=== PATIENT | female | born 1960 | race African-American/Black ===

== ENCOUNTER 2019-08-25 13:44 | Inpatient (IN) ==
[2019-08-25] MEDS ORDERED: SODIUM CHLORIDE 0.9% 1,000 ML IV STA (14:05)
[2019-08-25 14:23] LABS: Eosinophils % 0.1 % (0.00-10.9); Immature Granulocytes % 3.2 %; Immature Granulocytes Absolute 0.43 #; Lymphocytes # 0.9 10*3/uL (1.4-4.0); Lymphocytes % 6.4 % (21.3-54.2); Mean Corpuscular HGB Conc 29.1 GM/DL (32-36); Mean Corpuscular Volume 92.9 FL (87-102); Mean Platelet Volume 9.5 FL (9.6-12.0); NRBC # 0.03 10*3/uL; Neutrophils % 80.3 % (38.7-73.9); Platelet Count 423 T/CUMM (130-400); Red Blood Count 1.26 MC/CUMM (3.8-5.5); White Blood Count 13.4 T/CUMM (4-12)
[2019-08-25 14:32] LABS: Hematocrit 11.7 VOL% (35.7-47.0); Hemoglobin 3.4 GM/DL (12.0-16.0)
[2019-08-25] MEDS ORDERED: SODIUM CHLORIDE 0.9% 1,000 ML IV PRN (14:39)
[2019-08-25 14:40] LABS: Alanine Aminotransferase < 6 U/L (13-56); Albumin 2.3 G/DL (3.4-5.0); Alkaline Phosphatase 83 U/L (45-117); Aspartate Amino Transferase 9 U/L (0-37); Blood Urea Nitrogen 141 MG/DL (7-18); Estimated Glom Filtration Rate 4 ML/MIN; Glucose 133 MG/DL (74-106); Osmolality,Calculated 317.1 MOS/KG (273-304); Total Protein 6.9 G/DL (6.4-8.3); Troponin I < 0.015 NG/ML (0.00-0.045)
[2019-08-25 14:43] LABS: Calcium 5.6 MG/DL (8.5-10.1)
[2019-08-25 14:49] LABS: Apearance,Urine CLOUDY (Clear); Bilirubin,Urine Negative (Negative); Blood, Urine Large mg/dL (Negative); Glucose,Urine (UA) Negative (Negative); Ketones,Urine Negative (Negative); Nitrite,Urine Negative (Negative); Protein,Urine 100 MG/DL; RBC,Urine 243 /HPF (0-4); Urine Color Yellow (Yellow); Urine Specific Gravity 1.011 (1.001-1.035); Urine Urobilinogen < 2.0 EU/DL (0.2-1.0); WBC,Urine 1991 /HPF (0-6)
[2019-08-25] MEDS ORDERED: cefTRIAXone 1,000 MG in SODIUM CHLORIDE 0.9% 100 ML IV STA (14:54)
[2019-08-25] MEDS ORDERED: CALCIUM GLUCONATE 2,000 MG in SODIUM CHLORIDE 0.9% 100 ML IV ONE (14:54)
[2019-08-25] MEDS ORDERED: CALCIUM GLUCONATE 1,000 MG/10 ML VIAL IV ONE (15:32)
[2019-08-25] MEDS ORDERED: ZALEPLON 5 MG CAPSULE PO PRN (15:43)
[2019-08-25] MEDS ORDERED: DOCUSATE SODIUM 100 MG CAPSULE PO PRN (15:43)
[2019-08-25] MEDS ORDERED: diphenhydrAMINE CAP 25 MG CAPSULE PO PRN (15:43)
[2019-08-25] MEDS ORDERED: ACETAMINOPHEN 325 MG TABLET PO PRN (15:43)
[2019-08-25] MEDS ORDERED: ALBUTEROL 2.5 MG/3 ML NEB RESP TX PRN (15:43)
[2019-08-25] MEDS ORDERED: FAMOTIDINE 20 MG/2 ML VIAL IV SCH (16:00)
[2019-08-25] MEDS ORDERED: PANTOPRAZOLE 40 MG VIAL IV ONE (16:52)
[2019-08-25 17:04] LABS: Basophils % 0.1 % (0.0-0.8); Immature Granulocytes % 3.3 %; Immature Granulocytes Absolute 0.45 #; Lymphocytes # 0.9 10*3/uL (1.4-4.0); Lymphocytes % 6.8 % (21.3-54.2); Mean Corpuscular HGB Conc 29.3 GM/DL (32-36); Mean Corpuscular Volume 95.3 FL (87-102); Mean Platelet Volume 9.3 FL (9.6-12.0); Monocytes % 9.9 % (1.7-12.7); NRBC # 0.04 10*3/uL; Neutrophils % 79.9 % (38.7-73.9); Platelet Count 390 T/CUMM (130-400); Red Blood Count 1.29 MC/CUMM (3.8-5.5); Red Cell Distribution Width 19.2 % (9.3-17.3); White Blood Count 13.7 T/CUMM (4-12)
[2019-08-25 17:07] LABS: Hemoglobin 3.6 GM/DL (12.0-16.0)
[2019-08-25 17:08] LABS: Hematocrit 12.3 VOL% (35.7-47.0)
[2019-08-25] MEDS: SUCRALFATE 1 GM/10 ML UDCUP PO SCH ×2 (17:48→21:22)
[2019-08-25] MEDS: SODIUM BICARB INJ 50 MEQ in SODIUM CHLORIDE 0.45% 1,000 ML IV SCH (17:48)
[2019-08-25] MEDS ORDERED: PANTOPRAZOLE 40 MG VIAL IV STA (17:52)
[2019-08-25] MEDS: PANTOPRAZOLE 40 MG VIAL IV SCH (21:22)
[2019-08-26] MEDS: SODIUM BICARB INJ 50 MEQ in SODIUM CHLORIDE 0.45% 1,000 ML IV SCH ×3 (02:02→20:26)
[2019-08-26 03:06] LABS: Basophils % 0.1 % (0.0-0.8); Hematocrit 20.3 VOL% (35.7-47.0); Immature Granulocytes % 2.2 %; Immature Granulocytes Absolute 0.31 #; Lymphocytes # 0.7 10*3/uL (1.4-4.0); Lymphocytes % 5.2 % (21.3-54.2); Mean Corpuscular HGB Conc 30.5 GM/DL (32-36); Mean Platelet Volume 9.7 FL (9.6-12.0); Monocytes % 10.9 % (1.7-12.7); NRBC # 0.06 10*3/uL; Neutrophils % 81.6 % (38.7-73.9); Platelet Count 367 T/CUMM (130-400); Red Blood Count 2.23 MC/CUMM (3.8-5.5); White Blood Count 13.9 T/CUMM (4-12)
[2019-08-26 03:10] LABS: Hemoglobin 6.2 GM/DL (12.0-16.0)
[2019-08-26 03:35] LABS: Osmolality,Calculated 318.7 MOS/KG (273-304)
[2019-08-26 04:35] LABS: Calcium 5.5 MG/DL (8.5-10.1)
[2019-08-26] MEDS ORDERED: CALCIUM GLUCONATE 2,000 MG in SODIUM CHLORIDE 0.9% 100 ML IV ONE ×3 (06:00→17:20)
[2019-08-26] MEDS ORDERED: SODIUM CHLORIDE 0.9% 1,000 ML IV PRN (07:48)
[2019-08-26] MEDS: SUCRALFATE 1 GM/10 ML UDCUP PO SCH ×4 (08:10→20:25)
[2019-08-26] MEDS: PANTOPRAZOLE 40 MG VIAL IV SCH ×2 (08:10→20:25)
[2019-08-26] MEDS: CALCIUM CARBONATE CHEW 500 MG TABLET PO SCH ×3 (11:43→20:26)
[2019-08-26] MEDS: cefTRIAXone 1,000 MG in SYRINGE 1 EACH IV SCH (15:57)
[2019-08-26 16:59] LABS: Hematocrit 25.3 VOL% (35.7-47.0); Hemoglobin 8.1 GM/DL (12.0-16.0)
[2019-08-26] MEDS ORDERED: MAGNESIUM SULF RIDER 2 GM in PREMIX 1 EACH IV PRN (17:25)
[2019-08-26] MEDS ORDERED: MAGNESIUM SULF RIDER 4 GM in PREMIX 1 EACH IV PRN (17:25)
[2019-08-26 22:40] LABS: Calcium 6.4 MG/DL (8.5-10.1)
[2019-08-27] MEDS: SODIUM BICARB INJ 50 MEQ in SODIUM CHLORIDE 0.45% 1,000 ML IV SCH ×2 (05:21→16:27)
[2019-08-27 05:39] LABS: Basophils % 0.2 % (0.0-0.8); Eosinophils % 0.2 % (0.00-10.9); Hematocrit 27.2 VOL% (35.7-47.0); Hemoglobin 8.7 GM/DL (12.0-16.0); Immature Granulocytes Absolute 0.49 #; Lymphocytes % 8.1 % (21.3-54.2); Mean Platelet Volume 9.9 FL (9.6-12.0); Monocytes % 11.4 % (1.7-12.7); NRBC # 0.03 10*3/uL; Neutrophils % 76.1 % (38.7-73.9); Platelet Count 316 T/CUMM (130-400); Red Cell Distribution Width 18.2 % (9.3-17.3); White Blood Count 12.1 T/CUMM (4-12)
[2019-08-27 06:06] LABS: Calcium 6.2 MG/DL (8.5-10.1)
[2019-08-27] MEDS: CALCIUM CARBONATE CHEW 500 MG TABLET PO SCH ×4 (06:42→21:38)
[2019-08-27] MEDS: SUCRALFATE 1 GM/10 ML UDCUP PO SCH ×4 (06:42→21:38)
[2019-08-27] MEDS: PANTOPRAZOLE 40 MG VIAL IV SCH ×2 (08:04→21:38)
[2019-08-27] MEDS ORDERED: LEVOFLOXACIN INJ 750 MG in PREMIX 1 EACH IV ONE (08:57)
[2019-08-27] MEDS: ZINC OXIDE PASTE 113 GM TUBE TOP SCH ×2 (16:24→22:00)
[2019-08-27] MEDS: cefTRIAXone 1,000 MG in SYRINGE 1 EACH IV SCH (16:24)
[2019-08-28] MEDS: SODIUM BICARB INJ 50 MEQ in SODIUM CHLORIDE 0.45% 1,000 ML IV SCH ×2 (02:40→09:52)
[2019-08-28 05:35] LABS: Calcium 6.1 MG/DL (8.5-10.1); Osmolality,Calculated 301.2 MOS/KG (273-304)
[2019-08-28] MEDS: CALCIUM CARBONATE CHEW 500 MG TABLET PO SCH ×4 (06:37→21:46)
[2019-08-28] MEDS: SUCRALFATE 1 GM/10 ML UDCUP PO SCH ×4 (06:37→21:46)
[2019-08-28] MEDS: PANTOPRAZOLE 40 MG VIAL IV SCH (09:52)
[2019-08-28] MEDS: ZINC OXIDE PASTE 113 GM TUBE TOP SCH ×2 (10:09→21:47)
[2019-08-28] MEDS: PANTOPRAZOLE 40 MG TABLET PO SCH ×2 (10:09→21:46)
[2019-08-28] MEDS ORDERED: CALCIUM GLUCONATE 2,000 MG in SODIUM CHLORIDE 0.9% 100 ML IV ONE (10:27)
[2019-08-28] MEDS: ALBUTEROL/IPRATROPIUM 3 ML NEB RESP TX SCH ×2 (12:30→19:42)
[2019-08-28] MEDS: SODIUM BICARB INJ 150 MEQ in STERILE WATER INJ 850 ML IV SCH ×2 (12:33→22:35)
[2019-08-28] MEDS: cefTRIAXone 1,000 MG in SYRINGE 1 EACH IV SCH (17:31)
[2019-08-29] MEDS: ALBUTEROL/IPRATROPIUM 3 ML NEB RESP TX SCH ×3 (00:31→13:34)
[2019-08-29 05:09] LABS: Basophils % 0.2 % (0.0-0.8); Hematocrit 25.7 VOL% (35.7-47.0); Hemoglobin 8.5 GM/DL (12.0-16.0); Immature Granulocytes % 1.8 %; Immature Granulocytes Absolute 0.32 #; Lymphocytes # 0.9 10*3/uL (1.4-4.0); Lymphocytes % 4.7 % (21.3-54.2); Mean Corpuscular HGB Conc 33.1 GM/DL (32-36); Mean Corpuscular Volume 81.6 FL (87-102); Mean Platelet Volume 9.7 FL (9.6-12.0); Monocytes % 10.2 % (1.7-12.7); Neutrophils % 83.1 % (38.7-73.9); Platelet Count 302 T/CUMM (130-400); Red Blood Count 3.15 MC/CUMM (3.8-5.5); Red Cell Distribution Width 18.4 % (9.3-17.3); White Blood Count 18.3 T/CUMM (4-12)
[2019-08-29 05:43] LABS: Calcium 6.3 MG/DL (8.5-10.1); Osmolality,Calculated 298.2 MOS/KG (273-304)
[2019-08-29 05:46] LABS: Burr Cells Slight; Hypochromasia 1+; Lymphocytes 2 % (20-55); Ovalocytes Slight; Platelet Estimate Adequate; Segmented Neutrophils 89 % (50-85); Total Cells Counted 100
[2019-08-29] MEDS: ZINC OXIDE PASTE 113 GM TUBE TOP SCH (09:46)
[2019-08-29] MEDS: CALCIUM CARBONATE CHEW 500 MG TABLET PO SCH ×2 (09:47→12:53)
[2019-08-29] MEDS: PANTOPRAZOLE 40 MG TABLET PO SCH (09:47)
[2019-08-29] MEDS: SUCRALFATE 1 GM/10 ML UDCUP PO SCH ×2 (09:47→12:53)
[2019-08-29] MEDS: SODIUM BICARB INJ 150 MEQ in STERILE WATER INJ 850 ML IV SCH (09:47)
[2019-08-29 13:56] VITALS: BP 111/63
== END 2019-08-29 13:50 | disposition home health service (06) | DRG 254 ==
LOC: EDUNIT# → EDBD → N.ED 13:44 → SUATTDRO 15:43 → N.EDINP 15:43 → N.CC 17:51 → N.5E 08-27 19:09
PROVIDERS: ADMIT Family Medicine; ATTEND Internal Medicine

== ENCOUNTER 2019-09-05 17:19 | Inpatient (IN) ==
[2019-09-05] MEDS ORDERED: SODIUM CHLORIDE 0.9% 1,000 ML IV STA ×2 (18:10→21:32)
[2019-09-05 19:20] LABS: Apearance,Urine CLOUDY (Clear); Bilirubin,Urine Negative (Negative); Blood, Urine Moderate mg/dL (Negative); Glucose,Urine (UA) 50 mg/dL (Negative); Ketones,Urine 5 mg/dL (Negative); Nitrite,Urine Negative (Negative); Protein,Urine 100 MG/DL; RBC,Urine 17 /HPF (0-4); Urine Color Yellow (Yellow); Urine Urobilinogen < 2.0 EU/DL (0.2-1.0); WBC,Urine 1996 /HPF (0-6)
[2019-09-05 19:32] LABS: Basophils % 0.1 % (0.0-0.8); Hematocrit 24.5 VOL% (35.7-47.0); Hemoglobin 7.8 GM/DL (12.0-16.0); Immature Granulocytes % 1.8 %; Immature Granulocytes Absolute 0.41 #; Lymphocytes # 0.8 10*3/uL (1.4-4.0); Lymphocytes % 3.3 % (21.3-54.2); Mean Corpuscular HGB Conc 31.8 GM/DL (32-36); Mean Corpuscular Volume 84.8 FL (87-102); Mean Platelet Volume 10.8 FL (9.6-12.0); Monocytes % 6.5 % (1.7-12.7); Neutrophils % 88.3 % (38.7-73.9); Platelet Count 322 T/CUMM (130-400); Red Blood Count 2.89 MC/CUMM (3.8-5.5); Red Cell Distribution Width 18.8 % (9.3-17.3); White Blood Count 22.8 T/CUMM (4-12)
[2019-09-05 19:40] LABS: INR 1.2; PT Patient Result 12.6 SECS (9.6-12.2); Partial Thromboplastin Time 39.7 SECS (20.8-36.0)
[2019-09-05 20:00] LABS: Elliptocytes Few; Hypochromasia 1+; Lymphocytes 4 % (20-55); Segmented Neutrophils 91 % (50-85); Target Cells Few; Total Cells Counted 100
[2019-09-05 20:01] LABS: Burr Cells Few; Platelet Estimate Adequate
[2019-09-05] MEDS ORDERED: LEVOFLOXACIN INJ 750 MG in PREMIX 1 EACH IV STA (20:08)
[2019-09-05 20:13] LABS: Alanine Aminotransferase < 6 U/L (13-56); Albumin 1.3 G/DL (3.4-5.0); Alkaline Phosphatase 203 U/L (45-117); Aspartate Amino Transferase 27 U/L (0-37); Blood Urea Nitrogen 129 MG/DL (7-18); Calcium 6.8 MG/DL (8.5-10.1); Estimated Glom Filtration Rate 5 ML/MIN; Glucose 74 MG/DL (74-106); Osmolality,Calculated 304.5 MOS/KG (273-304); Total Protein 6.2 G/DL (6.4-8.3); Troponin I < 0.015 NG/ML (0.00-0.045)
[2019-09-05] MEDS ORDERED: SODIUM CHLORIDE 0.9% 1,000 ML IV PRN (22:20)
[2019-09-05] MEDS ORDERED: ONDANSETRON 4 MG/2 ML VIAL IV PRN (22:20)
[2019-09-05] MEDS ORDERED: DOCUSATE SODIUM 100 MG CAPSULE PO PRN (22:20)
[2019-09-05] MEDS: SODIUM CHLORIDE 0.9% 1,000 ML IV SCH (22:56)
[2019-09-05] MEDS: SODIUM BICARBONATE 650 MG TABLET PO SCH (23:30)
[2019-09-05] MEDS: ACETAMINOPHEN 325 MG TABLET PO PRN (23:31)
[2019-09-05] MEDS: PANTOPRAZOLE 40 MG TABLET PO SCH (23:31)
[2019-09-06] MEDS ORDERED: MAGNESIUM SULF RIDER 4 GM in PREMIX 1 EACH IV PRN (03:32)
[2019-09-06] MEDS ORDERED: MAGNESIUM SULF RIDER 2 GM in PREMIX 1 EACH IV PRN (03:32)
[2019-09-06 07:14] LABS: Basophils % 0.1 % (0.0-0.8); Hematocrit 25.7 VOL% (35.7-47.0); Hemoglobin 8.2 GM/DL (12.0-16.0); Immature Granulocytes % 1.9 %; Lymphocytes # 0.6 10*3/uL (1.4-4.0); Mean Corpuscular HGB Conc 31.9 GM/DL (32-36); Mean Corpuscular Volume 85.1 FL (87-102); Mean Platelet Volume 10.8 FL (9.6-12.0); Monocytes % 7.8 % (1.7-12.7); Neutrophils % 86.2 % (38.7-73.9); Platelet Count 266 T/CUMM (130-400); Red Blood Count 3.02 MC/CUMM (3.8-5.5); Red Cell Distribution Width 18.2 % (9.3-17.3); White Blood Count 15.8 T/CUMM (4-12)
[2019-09-06] MEDS: SODIUM CHLORIDE 0.9% 1,000 ML IV SCH ×4 (07:30→17:48)
[2019-09-06 07:37] LABS: Hypochromasia 1+; Lymphocytes 6 % (20-55); Ovalocytes Slight; Platelet Estimate Adequate; Segmented Neutrophils 91 % (50-85); Total Cells Counted 100
[2019-09-06 07:47] LABS: Calcium 6.5 MG/DL (8.5-10.1); Osmolality,Calculated 307.1 MOS/KG (273-304)
[2019-09-06] MEDS ORDERED: predniSONE 10 MG TABLET PO SCH (08:00)
[2019-09-06] MEDS: CALCIUM CARBONATE CHEW 500 MG TABLET PO SCH ×4 (08:53→21:33)
[2019-09-06] MEDS: PANTOPRAZOLE 40 MG TABLET PO SCH ×2 (08:53→21:33)
[2019-09-06] MEDS: FERROUS SULFATE 325 MG TABLET PO SCH ×2 (08:53→21:33)
[2019-09-06] MEDS: SODIUM BICARBONATE 650 MG TABLET PO SCH ×2 (09:35→21:33)
[2019-09-06] MEDS: HYDROCORTISONE 100 MG VIAL IV SCH ×2 (15:39→21:34)
[2019-09-06] MEDS ORDERED: CALCIUM GLUCONATE 2,000 MG in SODIUM CHLORIDE 0.9% 100 ML IV PRN (20:43)
[2019-09-06 22:33] LABS: Hepatitis B Core IgM Quant 0.05 Index; Hepatitis B Surface Ag Quant < 0.10 Index; Hepatitis B Surface Ag Result Negative (Negative); Hepatitis C Virus Ab Quant 0.14 Index; Hepatitis C Virus Ab Result Negative (Negative)
[2019-09-07] MEDS: HYDROCORTISONE 100 MG VIAL IV SCH ×4 (02:47→21:17)
[2019-09-07] MEDS: SODIUM CHLORIDE 0.9% 1,000 ML IV SCH ×4 (02:47→17:01)
[2019-09-07 05:01] LABS: Basophils % 0.1 % (0.0-0.8); Hemoglobin 8.6 GM/DL (12.0-16.0); Immature Granulocytes % 1.5 %; Immature Granulocytes Absolute 0.21 #; Lymphocytes # 0.5 10*3/uL (1.4-4.0); Lymphocytes % 3.2 % (21.3-54.2); Mean Corpuscular HGB Conc 31.9 GM/DL (32-36); Mean Corpuscular Volume 85.7 FL (87-102); Mean Platelet Volume 11.2 FL (9.6-12.0); Monocytes % 2.4 % (1.7-12.7); Neutrophils % 92.8 % (38.7-73.9); Platelet Count 303 T/CUMM (130-400); Red Blood Count 3.15 MC/CUMM (3.8-5.5); Red Cell Distribution Width 18.5 % (9.3-17.3); White Blood Count 14.5 T/CUMM (4-12)
[2019-09-07 05:20] LABS: Burr Cells Slight; Hypochromasia 1+; Lymphocytes 4 % (20-55); Ovalocytes Slight; Platelet Estimate Adequate; Segmented Neutrophils 94 % (50-85); Total Cells Counted 100
[2019-09-07 05:43] LABS: Calcium 6.8 MG/DL (8.5-10.1); Osmolality,Calculated 314.8 MOS/KG (273-304)
[2019-09-07] MEDS: PANTOPRAZOLE 40 MG TABLET PO SCH ×2 (09:07→21:17)
[2019-09-07] MEDS: SODIUM BICARBONATE 650 MG TABLET PO SCH ×2 (09:07→21:17)
[2019-09-07] MEDS: CALCIUM CARBONATE CHEW 500 MG TABLET PO SCH ×4 (09:07→21:17)
[2019-09-07] MEDS: FERROUS SULFATE 325 MG TABLET PO SCH ×2 (09:07→21:17)
[2019-09-07] MEDS ORDERED: ceFAZolin 1,000 MG in SYRINGE 1 EACH IV ONE (10:30)
[2019-09-07] MEDS ORDERED: LIDOCAINE 1%/EPI INJ 20 ML VIAL ONE (11:03)
[2019-09-07] MEDS ORDERED: TISSUE ADHESIVE 1 EACH APPLICATOR TOP ONE (11:03)
[2019-09-07] MEDS ORDERED: HEPARIN 5,000 UNIT/1 ML VIAL ONE (11:03)
[2019-09-07] MEDS ORDERED: BUPIVACAINE 0.5% 50 ML VIAL ONE (11:03)
[2019-09-07] MEDS ORDERED: SODIUM CHLORIDE 0.9% 250 ML IV SCH (12:30)
[2019-09-07] MEDS ORDERED: LIDOCAINE 2% 5 ML VIAL ONE (14:20)
[2019-09-07] MEDS ORDERED: propofoL 200 MG/20 ML VIAL IV ONE (14:20)
[2019-09-07] MEDS ORDERED: fentaNYL 100 MCG/2 ML VIAL ONE (14:21)
[2019-09-07] MEDS ORDERED: SODIUM CHLORIDE 0.9% 100 ML IV ONE (14:21)
[2019-09-07] MEDS ORDERED: PHENYLEPHRINE 1 MG/10 ML SYRINGE IV ONE (14:21)
[2019-09-07] MEDS ORDERED: ETOMIDATE 40 MG/20 ML VIAL IV ONE (14:21)
[2019-09-07] MEDS ORDERED: HEPARIN 10,000 UNIT/10 ML VIAL IV SCH (16:00)
[2019-09-07] MEDS: LEVOFLOXACIN INJ 500 MG in PREMIX 1 EACH IV SCH (21:16)
[2019-09-08] MEDS: HYDROCORTISONE 100 MG VIAL IV SCH ×4 (04:35→23:06)
[2019-09-08 06:45] LABS: Basophils % 0.1 % (0.0-0.8); Hematocrit 26.3 VOL% (35.7-47.0); Hemoglobin 8.1 GM/DL (12.0-16.0); Immature Granulocytes % 1.1 %; Immature Granulocytes Absolute 0.15 #; Lymphocytes # 0.5 10*3/uL (1.4-4.0); Mean Corpuscular HGB Conc 30.8 GM/DL (32-36); Mean Corpuscular Volume 85.4 FL (87-102); Monocytes % 4.7 % (1.7-12.7); Neutrophils % 90.1 % (38.7-73.9); Platelet Count 273 T/CUMM (130-400); Red Blood Count 3.08 MC/CUMM (3.8-5.5); Red Cell Distribution Width 18.8 % (9.3-17.3); White Blood Count 13.2 T/CUMM (4-12)
[2019-09-08] MEDS: SODIUM CHLORIDE 0.9% 1,000 ML IV SCH (06:48)
[2019-09-08 07:06] LABS: Albumin 1.2 G/DL (3.4-5.0); Calcium 6.6 MG/DL (8.5-10.1); Osmolality,Calculated 293.2 MOS/KG (273-304)
[2019-09-08] MEDS: SODIUM BICARBONATE 650 MG TABLET PO SCH ×2 (08:04→21:16)
[2019-09-08] MEDS: FERROUS SULFATE 325 MG TABLET PO SCH ×2 (08:05→21:16)
[2019-09-08] MEDS: CALCIUM CARBONATE CHEW 500 MG TABLET PO SCH ×4 (08:05→21:16)
[2019-09-08] MEDS: PANTOPRAZOLE 40 MG TABLET PO SCH ×2 (08:05→21:16)
[2019-09-08 08:47] LABS: Lymphocytes 4 % (20-55); Segmented Neutrophils 93 % (50-85); Total Cells Counted 100
[2019-09-08 08:50] LABS: Burr Cells Few; Hypochromasia 2+; Platelet Estimate Normal; Polychromasia Slight; Target Cells Few
[2019-09-08] MEDS: oxyCODONE/ACETAMINOPHEN 5-325 MG TABLET PO SCH ×3 (13:00→21:16)
[2019-09-08 17:37] LABS: Cholesterol Crystals None Seen /LPF
[2019-09-08 18:15] LABS: Lymphocytes,Synovial Fluid 5 %; Neutrophils,Synovial Fluid 90 %
[2019-09-09 05:50] LABS: Basophils % 0.1 % (0.0-0.8); Hematocrit 26.2 VOL% (35.7-47.0); Hemoglobin 8.3 GM/DL (12.0-16.0); Immature Granulocytes % 2.4 %; Immature Granulocytes Absolute 0.27 #; Lymphocytes # 0.4 10*3/uL (1.4-4.0); Lymphocytes % 3.8 % (21.3-54.2); Mean Corpuscular HGB Conc 31.7 GM/DL (32-36); Mean Corpuscular Volume 85.3 FL (87-102); Mean Platelet Volume 11.7 FL (9.6-12.0); Monocytes % 6.6 % (1.7-12.7); Neutrophils % 87.1 % (38.7-73.9); Platelet Count 264 T/CUMM (130-400); Red Blood Count 3.07 MC/CUMM (3.8-5.5); Red Cell Distribution Width 18.6 % (9.3-17.3); White Blood Count 11.3 T/CUMM (4-12)
[2019-09-09 06:27] LABS: Albumin 1.3 G/DL (3.4-5.0); Calcium 7.1 MG/DL (8.5-10.1); Osmolality,Calculated 284.2 MOS/KG (273-304)
[2019-09-09] MEDS: HYDROCORTISONE 100 MG VIAL IV SCH ×3 (06:27→23:07)
[2019-09-09 07:05] LABS: Lymphocytes 2 % (20-55); Segmented Neutrophils 96 % (50-85); Total Cells Counted 100
[2019-09-09 07:06] LABS: Anisocytosis 1+; Hypochromasia 2+; Microcytosis 1+; Polychromasia Slight; Target Cells Few
[2019-09-09 07:08] LABS: Platelet Estimate Normal
[2019-09-09] MEDS: SODIUM BICARBONATE 650 MG TABLET PO SCH ×2 (08:04→20:26)
[2019-09-09] MEDS: FERROUS SULFATE 325 MG TABLET PO SCH ×2 (08:04→20:26)
[2019-09-09] MEDS: CALCIUM CARBONATE CHEW 500 MG TABLET PO SCH ×4 (08:04→20:26)
[2019-09-09] MEDS: oxyCODONE/ACETAMINOPHEN 5-325 MG TABLET PO SCH ×3 (08:04→21:27)
[2019-09-09] MEDS: PANTOPRAZOLE 40 MG TABLET PO SCH ×2 (08:04→20:26)
[2019-09-09] MEDS: FEBUXOSTAT 80 MG TABLET PO SCH (12:01)
[2019-09-09] MEDS: HEPARIN 5,000 UNIT/1 ML VIAL SUBCUT SCH ×2 (15:58→23:09)
[2019-09-09] MEDS: LEVOFLOXACIN INJ 500 MG in PREMIX 1 EACH IV SCH (20:21)
[2019-09-10 05:16] LABS: Basophils % 0.1 % (0.0-0.8); Hematocrit 26.2 VOL% (35.7-47.0); Hemoglobin 8.2 GM/DL (12.0-16.0); Immature Granulocytes % 5.6 %; Immature Granulocytes Absolute 0.61 #; Lymphocytes # 0.5 10*3/uL (1.4-4.0); Lymphocytes % 4.2 % (21.3-54.2); Mean Corpuscular HGB Conc 31.3 GM/DL (32-36); Mean Corpuscular Volume 85.6 FL (87-102); Mean Platelet Volume 11.1 FL (9.6-12.0); Monocytes % 7.4 % (1.7-12.7); Neutrophils % 82.7 % (38.7-73.9); Platelet Count 247 T/CUMM (130-400); Red Blood Count 3.06 MC/CUMM (3.8-5.5); Red Cell Distribution Width 18.6 % (9.3-17.3); White Blood Count 10.9 T/CUMM (4-12)
[2019-09-10 05:43] LABS: Hypochromasia 1+; Lymphocytes 6 % (20-55); Microcytosis 1+; Platelet Estimate Adequate; Segmented Neutrophils 89 % (50-85); Total Cells Counted 100
[2019-09-10 05:56] LABS: Calcium 7.1 MG/DL (8.5-10.1); Osmolality,Calculated 281.5 MOS/KG (273-304)
[2019-09-10] MEDS: HEPARIN 5,000 UNIT/1 ML VIAL SUBCUT SCH ×3 (06:37→23:50)
[2019-09-10] MEDS: HYDROCORTISONE 100 MG VIAL IV SCH ×2 (06:56→16:50)
[2019-09-10] MEDS: CALCIUM CARBONATE CHEW 500 MG TABLET PO SCH ×4 (06:57→21:17)
[2019-09-10] MEDS: SODIUM BICARBONATE 650 MG TABLET PO SCH ×2 (09:07→21:17)
[2019-09-10] MEDS: PANTOPRAZOLE 40 MG TABLET PO SCH ×2 (09:07→21:17)
[2019-09-10] MEDS: oxyCODONE/ACETAMINOPHEN 5-325 MG TABLET PO SCH ×3 (09:07→21:16)
[2019-09-10] MEDS: FERROUS SULFATE 325 MG TABLET PO SCH ×2 (09:08→21:16)
[2019-09-10] MEDS: FEBUXOSTAT 80 MG TABLET PO SCH (09:08)
[2019-09-10] MEDS: ACETAMINOPHEN 325 MG TABLET PO PRN (13:50)
[2019-09-10] MEDS ORDERED: TUBERCULIN SKIN TEST 0.1 ML SYRINGE INTRADERM ONE (15:00)
[2019-09-11] MEDS: HYDROCORTISONE 100 MG VIAL IV SCH ×2 (01:01→08:25)
[2019-09-11 05:37] LABS: Basophils % 0.1 % (0.0-0.8); Hematocrit 25.5 VOL% (35.7-47.0); Hemoglobin 8.1 GM/DL (12.0-16.0); Immature Granulocytes % 7.9 %; Immature Granulocytes Absolute 1.01 #; Lymphocytes # 0.6 10*3/uL (1.4-4.0); Mean Corpuscular HGB Conc 31.8 GM/DL (32-36); Mean Corpuscular Volume 85.6 FL (87-102); Mean Platelet Volume 10.6 FL (9.6-12.0); Monocytes % 8.2 % (1.7-12.7); Neutrophils % 78.8 % (38.7-73.9); Platelet Count 217 T/CUMM (130-400); Red Blood Count 2.98 MC/CUMM (3.8-5.5); Red Cell Distribution Width 18.1 % (9.3-17.3); White Blood Count 12.7 T/CUMM (4-12)
[2019-09-11 06:05] LABS: Anisocytosis 1+; Band Neutrophils 2 % (0-10); Hypochromasia 1+; Lymphocytes 3 % (20-55); Metamyelocytes 1 %; Microcytosis 1+; Segmented Neutrophils 87 % (50-85); Target Cells Slight; Total Cells Counted 100
[2019-09-11 06:06] LABS: Platelet Estimate Normal
[2019-09-11] MEDS: HEPARIN 5,000 UNIT/1 ML VIAL SUBCUT SCH ×2 (07:24→15:46)
[2019-09-11] MEDS: FEBUXOSTAT 80 MG TABLET PO SCH (08:22)
[2019-09-11] MEDS: CALCIUM CARBONATE CHEW 500 MG TABLET PO SCH ×4 (08:22→21:48)
[2019-09-11] MEDS: SODIUM BICARBONATE 650 MG TABLET PO SCH ×2 (08:22→21:49)
[2019-09-11] MEDS: oxyCODONE/ACETAMINOPHEN 5-325 MG TABLET PO SCH ×3 (08:23→21:49)
[2019-09-11] MEDS: PANTOPRAZOLE 40 MG TABLET PO SCH ×2 (08:23→21:49)
[2019-09-11] MEDS: FERROUS SULFATE 325 MG TABLET PO SCH ×2 (08:23→21:49)
[2019-09-11 14:48] LABS: Cyclic Citrull Peptide Interp Negative
[2019-09-12] MEDS: HEPARIN 5,000 UNIT/1 ML VIAL SUBCUT SCH ×3 (00:37→16:23)
[2019-09-12 05:29] LABS: Rheumatoid Factor < 15 IU/ML (<15)
[2019-09-12] MEDS: SODIUM BICARBONATE 650 MG TABLET PO SCH ×2 (10:06→20:08)
[2019-09-12] MEDS: CALCIUM CARBONATE CHEW 500 MG TABLET PO SCH ×4 (10:06→20:08)
[2019-09-12] MEDS: FERROUS SULFATE 325 MG TABLET PO SCH ×2 (10:07→20:08)
[2019-09-12] MEDS: PANTOPRAZOLE 40 MG TABLET PO SCH ×2 (10:07→20:08)
[2019-09-12] MEDS: FEBUXOSTAT 80 MG TABLET PO SCH (10:07)
[2019-09-12] MEDS: ACETAMINOPHEN 325 MG TABLET PO PRN ×2 (10:09→16:23)
[2019-09-12] MEDS: oxyCODONE/ACETAMINOPHEN 5-325 MG TABLET PO SCH ×3 (10:09→21:02)
[2019-09-12] MEDS ORDERED: predniSONE 20 MG TABLET PO ONE (12:00)
[2019-09-13] MEDS: HEPARIN 5,000 UNIT/1 ML VIAL SUBCUT SCH ×3 (00:59→16:21)
[2019-09-13] MEDS: FEBUXOSTAT 80 MG TABLET PO SCH (08:39)
[2019-09-13] MEDS: predniSONE 20 MG TABLET PO SCH (08:40)
[2019-09-13] MEDS: FERROUS SULFATE 325 MG TABLET PO SCH ×2 (08:40→21:36)
[2019-09-13] MEDS: SODIUM BICARBONATE 650 MG TABLET PO SCH ×2 (08:40→21:36)
[2019-09-13] MEDS: PANTOPRAZOLE 40 MG TABLET PO SCH ×2 (08:40→21:36)
[2019-09-13] MEDS: CALCIUM CARBONATE CHEW 500 MG TABLET PO SCH ×4 (08:40→21:36)
[2019-09-13] MEDS: oxyCODONE/ACETAMINOPHEN 5-325 MG TABLET PO SCH ×3 (08:42→21:36)
[2019-09-13] MEDS: ALBUTEROL/IPRATROPIUM 3 ML NEB RESP TX PRN (10:18)
[2019-09-14] MEDS: HEPARIN 5,000 UNIT/1 ML VIAL SUBCUT SCH ×3 (01:04→16:16)
[2019-09-14] MEDS: predniSONE 20 MG TABLET PO SCH (08:19)
[2019-09-14] MEDS: PANTOPRAZOLE 40 MG TABLET PO SCH ×2 (08:19→21:50)
[2019-09-14] MEDS: FERROUS SULFATE 325 MG TABLET PO SCH ×2 (08:19→21:50)
[2019-09-14] MEDS: FEBUXOSTAT 80 MG TABLET PO SCH (08:20)
[2019-09-14] MEDS: oxyCODONE/ACETAMINOPHEN 5-325 MG TABLET PO SCH ×3 (08:20→21:49)
[2019-09-14] MEDS: SODIUM BICARBONATE 650 MG TABLET PO SCH ×2 (08:20→21:49)
[2019-09-14] MEDS: CALCIUM CARBONATE CHEW 500 MG TABLET PO SCH ×4 (09:37→21:48)
[2019-09-14] MEDS: BENZONATATE 100 MG CAPSULE PO PRN (18:05)
[2019-09-15] MEDS: HEPARIN 5,000 UNIT/1 ML VIAL SUBCUT SCH ×3 (01:33→16:33)
[2019-09-15] MEDS: CALCIUM CARBONATE CHEW 500 MG TABLET PO SCH ×4 (09:19→20:57)
[2019-09-15] MEDS: oxyCODONE/ACETAMINOPHEN 5-325 MG TABLET PO SCH ×3 (09:19→20:57)
[2019-09-15] MEDS: predniSONE 20 MG TABLET PO SCH (09:19)
[2019-09-15] MEDS: FEBUXOSTAT 80 MG TABLET PO SCH (09:19)
[2019-09-15] MEDS: SODIUM BICARBONATE 650 MG TABLET PO SCH ×2 (09:19→20:58)
[2019-09-15] MEDS: PANTOPRAZOLE 40 MG TABLET PO SCH ×2 (09:20→20:57)
[2019-09-15] MEDS: FERROUS SULFATE 325 MG TABLET PO SCH ×2 (09:20→20:58)
[2019-09-15] MEDS ORDERED: INFLUENZA VIRUS VACCINE 0.5 ML SYRINGE IM ONE (10:11)
[2019-09-15] MEDS: BENZONATATE 100 MG CAPSULE PO PRN (16:33)
[2019-09-16] MEDS: HEPARIN 5,000 UNIT/1 ML VIAL SUBCUT SCH ×3 (02:04→16:43)
[2019-09-16] MEDS: ALBUTEROL/IPRATROPIUM 3 ML NEB RESP TX PRN ×3 (02:29→23:30)
[2019-09-16 04:45] LABS: Basophils % 0.1 % (0.0-0.8); Hematocrit 21.9 VOL% (35.7-47.0); Immature Granulocytes Absolute 1.32 #; Lymphocytes # 1.3 10*3/uL (1.4-4.0); Lymphocytes % 6.8 % (21.3-54.2); Mean Corpuscular HGB Conc 31.5 GM/DL (32-36); Mean Corpuscular Volume 87.3 FL (87-102); Mean Platelet Volume 11.2 FL (9.6-12.0); Monocytes % 9.4 % (1.7-12.7); Neutrophils % 76.7 % (38.7-73.9); Platelet Count 258 T/CUMM (130-400); Red Blood Count 2.51 MC/CUMM (3.8-5.5); Red Cell Distribution Width 19.1 % (9.3-17.3); White Blood Count 18.9 T/CUMM (4-12)
[2019-09-16 04:48] LABS: Hemoglobin 6.9 GM/DL (12.0-16.0)
[2019-09-16 05:04] LABS: Band Neutrophils 1 % (0-10); Hypochromasia 1+; Lymphocytes 5 % (20-55); Ovalocytes Slight; Platelet Estimate Adequate; Segmented Neutrophils 88 % (50-85); Total Cells Counted 100
[2019-09-16 05:05] LABS: Microcytosis 1+
[2019-09-16] MEDS: BENZONATATE 100 MG CAPSULE PO PRN ×3 (05:42→21:13)
[2019-09-16] MEDS ORDERED: SODIUM CHLORIDE 0.9% 1,000 ML IV PRN (06:36)
[2019-09-16] MEDS: predniSONE 20 MG TABLET PO SCH (09:29)
[2019-09-16] MEDS: PANTOPRAZOLE 40 MG TABLET PO SCH ×2 (09:29→21:13)
[2019-09-16] MEDS: CALCIUM CARBONATE CHEW 500 MG TABLET PO SCH ×4 (09:30→21:12)
[2019-09-16] MEDS: SODIUM BICARBONATE 650 MG TABLET PO SCH ×2 (09:30→21:13)
[2019-09-16] MEDS: FEBUXOSTAT 80 MG TABLET PO SCH (09:30)
[2019-09-16] MEDS: FERROUS SULFATE 325 MG TABLET PO SCH ×2 (09:30→21:13)
[2019-09-17] MEDS: HEPARIN 5,000 UNIT/1 ML VIAL SUBCUT SCH ×2 (02:35→09:45)
[2019-09-17] MEDS: BENZONATATE 100 MG CAPSULE PO PRN ×3 (04:03→14:51)
[2019-09-17 07:03] LABS: Hematocrit 31.6 VOL% (35.7-47.0)
[2019-09-17] MEDS: FERROUS SULFATE 325 MG TABLET PO SCH (09:45)
[2019-09-17] MEDS: CALCIUM CARBONATE CHEW 500 MG TABLET PO SCH ×2 (09:45→12:04)
[2019-09-17] MEDS: PANTOPRAZOLE 40 MG TABLET PO SCH (09:45)
[2019-09-17] MEDS: predniSONE 20 MG TABLET PO SCH (09:45)
[2019-09-17] MEDS: FEBUXOSTAT 80 MG TABLET PO SCH (09:45)
[2019-09-17] MEDS: SODIUM BICARBONATE 650 MG TABLET PO SCH (12:04)
[2019-09-17 12:07] VITALS: BP 124/76
[2019-09-19 07:19] LABS: Anti SS-A Antibodies < 16 EU/ML
[2019-09-20 09:51] LABS: Double Stranded DNA Antibodies < 25.0 IU/ML
== END 2019-09-17 14:58 | DRG 720 ==
LOC: N.ED 17:19 → N.EDINP 21:15 → SUATTDRO 21:15 → N.2E 21:31
PROVIDERS: ADMIT Internal Medicine; ATTEND Internal Medicine

== ENCOUNTER 2019-09-24 11:50 | Inpatient (IN) ==
[2019-09-24] MEDS ORDERED: PANTOPRAZOLE 40 MG VIAL IV STA (12:12)
[2019-09-24] MEDS ORDERED: SODIUM CHLORIDE 0.9% 500 ML IV STA (12:12)
[2019-09-24] MEDS ORDERED: ONDANSETRON 4 MG/2 ML VIAL IV STA (12:12)
[2019-09-24 12:19] LABS: Basophils % 0.1 % (0.0-0.8); Eosinophils % 0.1 % (0.00-10.9); Hematocrit 25.5 VOL% (35.7-47.0); Immature Granulocytes % 0.7 %; Immature Granulocytes Absolute 0.06 #; Lymphocytes # 0.5 10*3/uL (1.4-4.0); Lymphocytes % 5.5 % (21.3-54.2); Mean Corpuscular HGB Conc 31.4 GM/DL (32-36); Mean Corpuscular Volume 87.6 FL (87-102); Monocytes % 6.1 % (1.7-12.7); Neutrophils % 87.5 % (38.7-73.9); Platelet Count 246 T/CUMM (130-400); Red Blood Count 2.91 MC/CUMM (3.8-5.5); Red Cell Distribution Width 17.7 % (9.3-17.3); White Blood Count 8.7 T/CUMM (4-12)
[2019-09-24 12:28] LABS: INR 1.1; PT Patient Result 11.4 SECS (9.6-12.2)
[2019-09-24 12:38] LABS: Albumin 1.8 G/DL (3.4-5.0); Bilirubin,Total 0.4 MG/DL (0.2-1.0); Osmolality,Calculated 287.8 MOS/KG (273-304); Total Protein 5.9 G/DL (6.4-8.3)
[2019-09-24] MEDS ORDERED: SODIUM CHLORIDE 0.9% 1,000 ML IV SCH ×2 (13:30→16:00)
[2019-09-24] MEDS: PIPERACILLIN/TAZOBACTAM 3,375 MG in SODIUM CHLORIDE 0.9% 100 ML IV SCH (18:08)
[2019-09-24 18:46] LABS: Basophils % 0.1 % (0.0-0.8); Hematocrit 25.9 VOL% (35.7-47.0); Immature Granulocytes % 1.2 %; Immature Granulocytes Absolute 0.09 #; Lymphocytes # 0.7 10*3/uL (1.4-4.0); Lymphocytes % 9.1 % (21.3-54.2); Mean Corpuscular HGB Conc 30.9 GM/DL (32-36); Mean Platelet Volume 10.4 FL (9.6-12.0); Monocytes % 10.5 % (1.7-12.7); Neutrophils % 79.1 % (38.7-73.9); Platelet Count 263 T/CUMM (130-400); Red Blood Count 2.91 MC/CUMM (3.8-5.5); Red Cell Distribution Width 17.8 % (9.3-17.3); White Blood Count 7.3 T/CUMM (4-12)
[2019-09-24] MEDS ORDERED: PANTOPRAZOLE 40 MG TABLET PO SCH (21:00)
[2019-09-24] MEDS: SODIUM BICARBONATE 650 MG TABLET PO SCH (21:19)
[2019-09-24] MEDS: FERROUS SULFATE 325 MG TABLET PO SCH (21:27)
[2019-09-25 01:40] LABS: Basophils % 0.2 % (0.0-0.8); Eosinophils % 0.5 % (0.00-10.9); Hemoglobin 7.3 GM/DL (12.0-16.0); Immature Granulocytes % 0.8 %; Immature Granulocytes Absolute 0.05 #; Lymphocytes # 0.9 10*3/uL (1.4-4.0); Lymphocytes % 14.3 % (21.3-54.2); Mean Corpuscular HGB Conc 31.7 GM/DL (32-36); Mean Corpuscular Volume 87.8 FL (87-102); Mean Platelet Volume 9.5 FL (9.6-12.0); Monocytes % 10.8 % (1.7-12.7); Neutrophils % 73.4 % (38.7-73.9); Platelet Count 221 T/CUMM (130-400); Red Blood Count 2.62 MC/CUMM (3.8-5.5); Red Cell Distribution Width 17.6 % (9.3-17.3); White Blood Count 6.2 T/CUMM (4-12)
[2019-09-25 02:02] LABS: Albumin 1.5 G/DL (3.4-5.0); Bilirubin,Total 0.9 MG/DL (0.2-1.0); Calcium 6.7 MG/DL (8.5-10.1); Osmolality,Calculated 291.4 MOS/KG (273-304); Total Protein 5.1 G/DL (6.4-8.3)
[2019-09-25] MEDS: PIPERACILLIN/TAZOBACTAM 3,375 MG in SODIUM CHLORIDE 0.9% 100 ML IV SCH ×2 (04:34→22:11)
[2019-09-25 06:24] LABS: Basophils % 0.3 % (0.0-0.8); Eosinophils # 0.1 10*3/uL (0.0-0.87); Eosinophils % 0.9 % (0.00-10.9); Hematocrit 24.6 VOL% (35.7-47.0); Hemoglobin 7.6 GM/DL (12.0-16.0); Immature Granulocytes Absolute 0.07 #; Lymphocytes # 0.8 10*3/uL (1.4-4.0); Lymphocytes % 12.2 % (21.3-54.2); Mean Corpuscular HGB Conc 30.9 GM/DL (32-36); Mean Corpuscular Volume 87.9 FL (87-102); Mean Platelet Volume 10.2 FL (9.6-12.0); Monocytes % 10.3 % (1.7-12.7); Neutrophils % 75.3 % (38.7-73.9); Platelet Count 254 T/CUMM (130-400); Red Cell Distribution Width 17.7 % (9.3-17.3); White Blood Count 6.9 T/CUMM (4-12)
[2019-09-25] MEDS ORDERED: propofoL 200 MG/20 ML VIAL IV ONE (09:00)
[2019-09-25] MEDS ORDERED: predniSONE 10 MG TABLET PO SCH (09:00)
[2019-09-25] MEDS ORDERED: LIDOCAINE 2% 5 ML VIAL ONE (09:00)
[2019-09-25] MEDS ORDERED: PHENYLEPHRINE 1 MG/10 ML SYRINGE IV ONE (09:00)
[2019-09-25] MEDS ORDERED: SODIUM CHLORIDE 0.9% 1,000 ML IV PRN (09:13)
[2019-09-25] MEDS: predniSONE 10 MG TABLET PO SCH (09:27)
[2019-09-25] MEDS: SODIUM BICARBONATE 650 MG TABLET PO SCH ×2 (09:27→22:11)
[2019-09-25] MEDS: PANTOPRAZOLE 40 MG VIAL IV SCH ×2 (11:24→22:11)
[2019-09-25] MEDS: BISACODYL 5 MG TABLET PO SCH ×2 (11:24→18:10)
[2019-09-25] MEDS: METOCLOPRAMIDE 10 MG/2 ML VIAL IV SCH ×2 (11:24→18:18)
[2019-09-25] MEDS ORDERED: HEPARIN 10,000 UNIT/10 ML VIAL IV SCH (12:30)
[2019-09-25] MEDS ORDERED: VANCOMYCIN INJ 1,000 MG in SODIUM CHLORIDE 0.9% 250 ML IV PRN (12:57)
[2019-09-25] MEDS ORDERED: VANCOMYCIN INJ 1,000 MG in SODIUM CHLORIDE 0.9% 250 ML IV SCH (13:00)
[2019-09-25] MEDS ORDERED: VANCOMYCIN INJ 1,000 MG in SODIUM CHLORIDE 0.9% 250 ML IV ONE (17:00)
[2019-09-25] MEDS ORDERED: POLYETHYLENE GLYCOL 3350/ELECTROLYTES 4,000 ML BOTTLE NG ONE (18:00)
[2019-09-25] MEDS ORDERED: MAGNESIUM CITRATE 300 ML BOTTLE NG ONE (21:00)
[2019-09-26] MEDS: METOCLOPRAMIDE 10 MG/2 ML VIAL IV SCH ×4 (00:54→17:20)
[2019-09-26] MEDS: BISACODYL 5 MG TABLET PO SCH (01:11)
[2019-09-26 05:23] LABS: Basophils % 0.4 % (0.0-0.8); Eosinophils # 0.1 10*3/uL (0.0-0.87); Eosinophils % 1.8 % (0.00-10.9); Hematocrit 28.2 VOL% (35.7-47.0); Hemoglobin 9.1 GM/DL (12.0-16.0); Immature Granulocytes % 1.2 %; Immature Granulocytes Absolute 0.08 #; Lymphocytes # 0.9 10*3/uL (1.4-4.0); Lymphocytes % 13.3 % (21.3-54.2); Mean Corpuscular HGB Conc 32.3 GM/DL (32-36); Mean Corpuscular Volume 87.6 FL (87-102); Mean Platelet Volume 9.8 FL (9.6-12.0); Monocytes % 12.3 % (1.7-12.7); Platelet Count 205 T/CUMM (130-400); Red Blood Count 3.22 MC/CUMM (3.8-5.5); Red Cell Distribution Width 16.7 % (9.3-17.3); White Blood Count 6.7 T/CUMM (4-12)
[2019-09-26 05:47] LABS: Osmolality,Calculated 279.7 MOS/KG (273-304)
[2019-09-26] MEDS ORDERED: propofoL 200 MG/20 ML VIAL IV ONE (09:00)
[2019-09-26] MEDS ORDERED: LIDOCAINE 2% 5 ML VIAL ONE (09:00)
[2019-09-26] MEDS ORDERED: PHENYLEPHRINE 1 MG/10 ML SYRINGE IV ONE (09:00)
[2019-09-26] MEDS ORDERED: ETOMIDATE 20 MG/10 ML VIAL IV ONE (09:00)
[2019-09-26] MEDS: PANTOPRAZOLE 40 MG VIAL IV SCH ×2 (09:51→21:04)
[2019-09-26] MEDS: PIPERACILLIN/TAZOBACTAM 3,375 MG in SODIUM CHLORIDE 0.9% 100 ML IV SCH ×2 (09:52→21:04)
[2019-09-26] MEDS: SODIUM BICARBONATE 650 MG TABLET PO SCH ×2 (09:52→21:03)
[2019-09-26] MEDS: predniSONE 10 MG TABLET PO SCH (09:52)
[2019-09-26] MEDS: POTASSIUM CHLORIDE RIDER 100 ML IV SCH ×2 (11:51→12:50)
[2019-09-26] MEDS: ACETAMINOPHEN 325 MG TABLET PO PRN ×2 (15:25→21:03)
[2019-09-27] MEDS ORDERED: ADENOSINE 6 MG/2 ML VIAL IV ONE (00:30)
[2019-09-27] MEDS: METOCLOPRAMIDE 10 MG/2 ML VIAL IV SCH ×4 (01:43→17:42)
[2019-09-27 05:22] LABS: Basophils % 0.5 % (0.0-0.8); Eosinophils # 0.1 10*3/uL (0.0-0.87); Eosinophils % 2.1 % (0.00-10.9); Hematocrit 28.2 VOL% (35.7-47.0); Hemoglobin 8.8 GM/DL (12.0-16.0); Immature Granulocytes % 1.2 %; Immature Granulocytes Absolute 0.08 #; Lymphocytes # 1.2 10*3/uL (1.4-4.0); Lymphocytes % 17.8 % (21.3-54.2); Mean Corpuscular HGB Conc 31.2 GM/DL (32-36); Mean Corpuscular Volume 89.2 FL (87-102); Mean Platelet Volume 10.3 FL (9.6-12.0); Monocytes % 10.9 % (1.7-12.7); Neutrophils % 67.5 % (38.7-73.9); Platelet Count 245 T/CUMM (130-400); Red Blood Count 3.16 MC/CUMM (3.8-5.5); Red Cell Distribution Width 16.8 % (9.3-17.3); White Blood Count 6.5 T/CUMM (4-12)
[2019-09-27 06:07] LABS: Calcium 7.1 MG/DL (8.5-10.1); Osmolality,Calculated 283.7 MOS/KG (273-304)
[2019-09-27] MEDS: PANTOPRAZOLE 40 MG VIAL IV SCH ×3 (07:50→20:25)
[2019-09-27] MEDS: PIPERACILLIN/TAZOBACTAM 3,375 MG in SODIUM CHLORIDE 0.9% 100 ML IV SCH ×3 (07:50→20:24)
[2019-09-27] MEDS: SODIUM BICARBONATE 650 MG TABLET PO SCH ×3 (07:51→20:24)
[2019-09-27] MEDS: predniSONE 10 MG TABLET PO SCH ×2 (07:51→08:32)
[2019-09-27] MEDS: ACETAMINOPHEN 325 MG TABLET PO PRN (17:41)
[2019-09-27] MEDS: traMADol 50 MG TABLET PO PRN (21:55)
[2019-09-28 05:34] LABS: Basophils % 0.4 % (0.0-0.8); Eosinophils # 0.2 10*3/uL (0.0-0.87); Eosinophils % 3.6 % (0.00-10.9); Hematocrit 27.6 VOL% (35.7-47.0); Hemoglobin 8.6 GM/DL (12.0-16.0); Immature Granulocytes % 1.6 %; Immature Granulocytes Absolute 0.09 #; Lymphocytes # 1.2 10*3/uL (1.4-4.0); Lymphocytes % 21.7 % (21.3-54.2); Mean Corpuscular HGB Conc 31.2 GM/DL (32-36); Mean Corpuscular Volume 90.5 FL (87-102); Mean Platelet Volume 9.9 FL (9.6-12.0); Monocytes % 12.8 % (1.7-12.7); Neutrophils % 59.9 % (38.7-73.9); Platelet Count 235 T/CUMM (130-400); Red Blood Count 3.05 MC/CUMM (3.8-5.5); Red Cell Distribution Width 17.1 % (9.3-17.3); White Blood Count 5.5 T/CUMM (4-12)
[2019-09-28 05:50] LABS: Calcium 7.3 MG/DL (8.5-10.1)
[2019-09-28] MEDS: PANTOPRAZOLE 40 MG TABLET PO SCH ×2 (06:22→18:22)
[2019-09-28] MEDS: FERROUS SULFATE 325 MG TABLET PO SCH ×2 (08:00→21:24)
[2019-09-28] MEDS: METOCLOPRAMIDE 10 MG/10 ML UDCUP PO SCH ×4 (08:00→21:24)
[2019-09-28] MEDS: PIPERACILLIN/TAZOBACTAM 3,375 MG in SODIUM CHLORIDE 0.9% 100 ML IV SCH ×2 (08:00→21:25)
[2019-09-28] MEDS: predniSONE 10 MG TABLET PO SCH (08:00)
[2019-09-28] MEDS: SODIUM BICARBONATE 650 MG TABLET PO SCH (08:00)
[2019-09-28] MEDS: allopurinoL 100 MG TABLET PO SCH (12:10)
[2019-09-28] MEDS ORDERED: MAGNESIUM SULF RIDER 2 GM in PREMIX 1 EACH IV ONE (15:30)
[2019-09-28] MEDS ORDERED: POTASSIUM CHLORIDE 20 MEQ TABLET PO SCH (15:30)
[2019-09-28] MEDS ORDERED: POTASSIUM CHLORIDE 20 MEQ TABLET PO ONE (16:00)
[2019-09-28] MEDS ORDERED: VANCOMYCIN INJ 1,000 MG in SODIUM CHLORIDE 0.9% 250 ML IV SCH (18:30)
[2019-09-28] MEDS ORDERED: VANCOMYCIN INJ 1,000 MG in SODIUM CHLORIDE 0.9% 250 ML IV ONE (20:00)
[2019-09-28] MEDS: traMADol 50 MG TABLET PO PRN (21:24)
[2019-09-29 06:09] LABS: Basophils % 0.4 % (0.0-0.8); Eosinophils # 0.1 10*3/uL (0.0-0.87); Eosinophils % 2.6 % (0.00-10.9); Hematocrit 28.5 VOL% (35.7-47.0); Immature Granulocytes % 1.6 %; Immature Granulocytes Absolute 0.08 #; Lymphocytes # 1.3 10*3/uL (1.4-4.0); Lymphocytes % 25.9 % (21.3-54.2); Mean Corpuscular HGB Conc 31.6 GM/DL (32-36); Mean Corpuscular Volume 89.6 FL (87-102); Mean Platelet Volume 10.3 FL (9.6-12.0); Monocytes % 13.6 % (1.7-12.7); Neutrophils % 55.9 % (38.7-73.9); Platelet Count 241 T/CUMM (130-400); Red Blood Count 3.18 MC/CUMM (3.8-5.5); Red Cell Distribution Width 16.9 % (9.3-17.3)
[2019-09-29 06:53] LABS: Calcium 7.5 MG/DL (8.5-10.1); Osmolality,Calculated 279.7 MOS/KG (273-304)
[2019-09-29] MEDS: PANTOPRAZOLE 40 MG TABLET PO SCH ×2 (08:13→18:03)
[2019-09-29] MEDS: METOCLOPRAMIDE 10 MG/10 ML UDCUP PO SCH ×4 (08:13→20:46)
[2019-09-29] MEDS: allopurinoL 100 MG TABLET PO SCH (08:13)
[2019-09-29] MEDS: FERROUS SULFATE 325 MG TABLET PO SCH ×2 (08:13→20:42)
[2019-09-29] MEDS: predniSONE 10 MG TABLET PO SCH (08:13)
[2019-09-29] MEDS: PIPERACILLIN/TAZOBACTAM 3,375 MG in SODIUM CHLORIDE 0.9% 100 ML IV SCH (13:27)
[2019-09-29] MEDS: traMADol 50 MG TABLET PO PRN (14:19)
[2019-09-30] MEDS: PIPERACILLIN/TAZOBACTAM 3,375 MG in SODIUM CHLORIDE 0.9% 100 ML IV SCH ×2 (01:05→13:38)
[2019-09-30 05:35] LABS: Basophils % 0.5 % (0.0-0.8); Eosinophils # 0.1 10*3/uL (0.0-0.87); Eosinophils % 1.5 % (0.00-10.9); Hematocrit 27.6 VOL% (35.7-47.0); Hemoglobin 8.3 GM/DL (12.0-16.0); Immature Granulocytes % 1.7 %; Immature Granulocytes Absolute 0.07 #; Lymphocytes # 1.1 10*3/uL (1.4-4.0); Lymphocytes % 28.1 % (21.3-54.2); Mean Corpuscular HGB Conc 30.1 GM/DL (32-36); Mean Platelet Volume 10.5 FL (9.6-12.0); Monocytes % 14.4 % (1.7-12.7); Neutrophils % 53.8 % (38.7-73.9); Platelet Count 243 T/CUMM (130-400); Red Cell Distribution Width 16.9 % (9.3-17.3)
[2019-09-30 05:51] LABS: Calcium 7.5 MG/DL (8.5-10.1); Osmolality,Calculated 276.7 MOS/KG (273-304)
[2019-09-30] MEDS: PANTOPRAZOLE 40 MG TABLET PO SCH ×2 (06:18→18:09)
[2019-09-30] MEDS: METOCLOPRAMIDE 10 MG/10 ML UDCUP PO SCH ×4 (09:00→20:30)
[2019-09-30] MEDS: allopurinoL 100 MG TABLET PO SCH (09:02)
[2019-09-30] MEDS: predniSONE 10 MG TABLET PO SCH (09:02)
[2019-09-30] MEDS: POTASSIUM CHLORIDE 20 MEQ TABLET PO PRN ×5 (09:02→17:15)
[2019-09-30] MEDS: FERROUS SULFATE 325 MG TABLET PO SCH ×2 (09:02→20:31)
[2019-09-30] MEDS: ACETAMINOPHEN 325 MG TABLET PO PRN (20:30)
[2019-10-01] MEDS: PIPERACILLIN/TAZOBACTAM 3,375 MG in SODIUM CHLORIDE 0.9% 100 ML IV SCH ×2 (00:15→13:58)
[2019-10-01] MEDS: traMADol 50 MG TABLET PO PRN (00:19)
[2019-10-01 05:02] LABS: Basophils % 0.4 % (0.0-0.8); Eosinophils % 0.9 % (0.00-10.9); Hematocrit 25.5 VOL% (35.7-47.0); Hemoglobin 7.8 GM/DL (12.0-16.0); Immature Granulocytes Absolute 0.09 #; Lymphocytes # 1.3 10*3/uL (1.4-4.0); Lymphocytes % 29.1 % (21.3-54.2); Mean Corpuscular HGB Conc 30.6 GM/DL (32-36); Mean Corpuscular Volume 91.1 FL (87-102); Mean Platelet Volume 9.9 FL (9.6-12.0); Monocytes % 13.7 % (1.7-12.7); Neutrophils % 53.9 % (38.7-73.9); Platelet Count 238 T/CUMM (130-400); Red Cell Distribution Width 16.8 % (9.3-17.3); White Blood Count 4.5 T/CUMM (4-12)
[2019-10-01 05:23] LABS: Hypochromasia 1+; Platelet Estimate Adequate
[2019-10-01 05:24] LABS: Calcium 7.3 MG/DL (8.5-10.1); Osmolality,Calculated 277.8 MOS/KG (273-304)
[2019-10-01] MEDS: PANTOPRAZOLE 40 MG TABLET PO SCH ×2 (06:18→18:02)
[2019-10-01] MEDS: FERROUS SULFATE 325 MG TABLET PO SCH ×2 (09:26→21:47)
[2019-10-01] MEDS: METOCLOPRAMIDE 10 MG/10 ML UDCUP PO SCH ×4 (09:26→21:47)
[2019-10-01] MEDS: predniSONE 10 MG TABLET PO SCH (09:26)
[2019-10-01] MEDS: allopurinoL 100 MG TABLET PO SCH (09:26)
[2019-10-02] MEDS: PIPERACILLIN/TAZOBACTAM 3,375 MG in SODIUM CHLORIDE 0.9% 100 ML IV SCH (01:40)
[2019-10-02] MEDS: PANTOPRAZOLE 40 MG TABLET PO SCH ×2 (06:01→18:44)
[2019-10-02 06:03] LABS: Basophils % 0.2 % (0.0-0.8); Eosinophils # 0.1 10*3/uL (0.0-0.87); Eosinophils % 1.1 % (0.00-10.9); Hematocrit 26.2 VOL% (35.7-47.0); Hemoglobin 7.9 GM/DL (12.0-16.0); Immature Granulocytes % 2.1 %; Immature Granulocytes Absolute 0.11 #; Lymphocytes # 1.6 10*3/uL (1.4-4.0); Mean Corpuscular HGB Conc 30.2 GM/DL (32-36); Mean Corpuscular Volume 91.6 FL (87-102); Mean Platelet Volume 10.1 FL (9.6-12.0); Neutrophils % 53.6 % (38.7-73.9); Platelet Count 279 T/CUMM (130-400); Red Blood Count 2.86 MC/CUMM (3.8-5.5); Red Cell Distribution Width 17.2 % (9.3-17.3); White Blood Count 5.3 T/CUMM (4-12)
[2019-10-02 06:15] LABS: Calcium 7.2 MG/DL (8.5-10.1); Osmolality,Calculated 286.4 MOS/KG (273-304)
[2019-10-02 07:18] LABS: Eosinophils 1 % (0-10); Lymphocytes 28 % (20-55); Metamyelocytes 1 %; Myelocytes 1 %; Platelet Estimate Normal; Segmented Neutrophils 57 % (50-85); Total Cells Counted 100
[2019-10-02 07:19] LABS: Hypochromasia 2+; Ovalocytes 1+
[2019-10-02] MEDS: METOCLOPRAMIDE 10 MG/10 ML UDCUP PO SCH ×4 (08:53→21:48)
[2019-10-02] MEDS: POTASSIUM CHLORIDE 20 MEQ TABLET PO PRN (08:53)
[2019-10-02] MEDS: allopurinoL 100 MG TABLET PO SCH (14:14)
[2019-10-02] MEDS: predniSONE 10 MG TABLET PO SCH (14:14)
[2019-10-02] MEDS: FERROUS SULFATE 325 MG TABLET PO SCH ×2 (14:15→21:48)
[2019-10-02] MEDS: traMADol 50 MG TABLET PO PRN (14:18)
[2019-10-03] MEDS: PANTOPRAZOLE 40 MG TABLET PO SCH ×2 (06:19→20:39)
[2019-10-03] MEDS: allopurinoL 100 MG TABLET PO SCH (09:21)
[2019-10-03] MEDS: predniSONE 10 MG TABLET PO SCH (09:21)
[2019-10-03] MEDS: METOCLOPRAMIDE 10 MG/10 ML UDCUP PO SCH ×4 (09:21→20:39)
[2019-10-03] MEDS: FERROUS SULFATE 325 MG TABLET PO SCH ×2 (09:21→20:39)
[2019-10-04] MEDS: PANTOPRAZOLE 40 MG TABLET PO SCH (06:00)
[2019-10-04] MEDS: METOCLOPRAMIDE 10 MG/10 ML UDCUP PO SCH ×3 (08:13→10:34)
[2019-10-04] MEDS: predniSONE 10 MG TABLET PO SCH (08:13)
[2019-10-04] MEDS: FERROUS SULFATE 325 MG TABLET PO SCH (08:13)
[2019-10-04] MEDS: allopurinoL 100 MG TABLET PO SCH (08:13)
[2019-10-04 13:04] VITALS: BP 117/51
== END 2019-10-04 14:52 | DRG 244 ==
LOC: EDBD → EDUNIT# → N.ED 11:50 → N.EDINP 13:31 → SUATTDRO 13:31 → N.5E 14:53
PROVIDERS: ADMIT Internal Medicine; ATTEND Internal Medicine

== ENCOUNTER 2019-10-06 07:15 | Inpatient (IN) ==
[2019-10-06 08:14] LABS: Basophils # 0.1 10*3/uL (0.0-0.2); Basophils % 0.4 % (0.0-0.8); Eosinophils % 0.1 % (0.00-10.9); Hematocrit 27.4 VOL% (35.7-47.0); Hemoglobin 8.6 GM/DL (12.0-16.0); Immature Granulocytes % 0.9 %; Immature Granulocytes Absolute 0.12 #; Lymphocytes # 2.1 10*3/uL (1.4-4.0); Lymphocytes % 15.1 % (21.3-54.2); Mean Corpuscular HGB Conc 31.4 GM/DL (32-36); Mean Platelet Volume 10.7 FL (9.6-12.0); Monocytes % 11.1 % (1.7-12.7); Neutrophils % 72.4 % (38.7-73.9); Platelet Count 333 T/CUMM (130-400); Red Blood Count 3.08 MC/CUMM (3.8-5.5); Red Cell Distribution Width 17.4 % (9.3-17.3); White Blood Count 13.6 T/CUMM (4-12)
[2019-10-06] MEDS ORDERED: SODIUM CHLORIDE 0.9% 250 ML IV STA (08:24)
[2019-10-06 08:38] LABS: Apearance,Urine CLOUDY (Clear); Bilirubin,Urine Negative (Negative); Blood, Urine Large mg/dL (Negative); Glucose,Urine (UA) Negative (Negative); Ketones,Urine Negative (Negative); Nitrite,Urine Negative (Negative); Protein,Urine 100 MG/DL; RBC,Urine 448 /HPF (0-4); Urine Color Yellow (Yellow); Urine Urobilinogen < 2.0 EU/DL (0.2-1.0); WBC,Urine 38807 /HPF (0-6)
[2019-10-06 08:39] LABS: Albumin 1.7 G/DL (3.4-5.0); Bilirubin,Total 0.5 MG/DL (0.2-1.0); Calcium 7.7 MG/DL (8.5-10.1); Total Protein 6.6 G/DL (6.4-8.3)
[2019-10-06] MEDS ORDERED: cefTRIAXone 1,000 MG in SODIUM CHLORIDE 0.9% 100 ML IV STA (09:23)
[2019-10-06] MEDS ORDERED: VANCOMYCIN INJ 1,000 MG in SODIUM CHLORIDE 0.9% 250 ML IV ONE (09:29)
[2019-10-06] MEDS ORDERED: VANCOMYCIN 1,000 MG VIAL ONE (10:02)
[2019-10-06] MEDS ORDERED: ACETAMINOPHEN 500 MG TABLET PO STA (10:32)
[2019-10-06] MEDS ORDERED: ONDANSETRON 4 MG/2 ML VIAL IV PRN (11:03)
[2019-10-06] MEDS ORDERED: DOCUSATE SODIUM 100 MG CAPSULE PO PRN (11:05)
[2019-10-06 12:47] LABS: Hepatitis B Core IgM Quant 0.07 Index; Hepatitis B Surface Ag Quant 0.15 Index; Hepatitis B Surface Ag Result Negative (Negative); Hepatitis C Virus Ab Quant 0.08 Index; Hepatitis C Virus Ab Result Negative (Negative)
[2019-10-06] MEDS ORDERED: SODIUM CHLORIDE 0.9% 1,000 ML IV SCH (13:30)
[2019-10-06] MEDS: ACETAMINOPHEN 325 MG TABLET PO PRN (20:29)
[2019-10-06] MEDS: SODIUM BICARBONATE 650 MG TABLET PO SCH (20:30)
[2019-10-06] MEDS: FERROUS SULFATE 325 MG TABLET PO SCH (20:30)
[2019-10-06] MEDS: PANTOPRAZOLE 40 MG TABLET PO SCH (20:30)
[2019-10-07 05:42] LABS: Basophils % 0.3 % (0.0-0.8); Eosinophils % 0.1 % (0.00-10.9); Immature Granulocytes Absolute 0.12 #; Lymphocytes % 16.2 % (21.3-54.2); Mean Corpuscular HGB Conc 30.8 GM/DL (32-36); Mean Corpuscular Volume 90.6 FL (87-102); Mean Platelet Volume 10.6 FL (9.6-12.0); Monocytes % 13.5 % (1.7-12.7); Neutrophils % 68.9 % (38.7-73.9); Platelet Count 324 T/CUMM (130-400); Red Blood Count 2.87 MC/CUMM (3.8-5.5); Red Cell Distribution Width 17.2 % (9.3-17.3)
[2019-10-07 06:01] LABS: Albumin 1.5 G/DL (3.4-5.0); Bilirubin,Total 0.7 MG/DL (0.2-1.0); Calcium 7.7 MG/DL (8.5-10.1); Osmolality,Calculated 278.8 MOS/KG (273-304); Total Protein 6.3 G/DL (6.4-8.3)
[2019-10-07] MEDS: FERROUS SULFATE 325 MG TABLET PO SCH ×2 (08:39→20:26)
[2019-10-07] MEDS: ACETAMINOPHEN 325 MG TABLET PO PRN ×3 (08:39→20:27)
[2019-10-07] MEDS: SODIUM BICARBONATE 650 MG TABLET PO SCH ×2 (08:39→20:26)
[2019-10-07] MEDS: cefTRIAXone 1,000 MG in SYRINGE 1 EACH IV SCH (08:39)
[2019-10-07] MEDS: PANTOPRAZOLE 40 MG TABLET PO SCH ×2 (08:40→20:27)
[2019-10-07] MEDS: allopurinoL 100 MG TABLET PO SCH (08:40)
[2019-10-07] MEDS ORDERED: PANTOPRAZOLE 40 MG TABLET PO SCH (09:00)
[2019-10-07] MEDS ORDERED: SODIUM CHLORIDE 0.9% 1,000 ML IV SCH (12:30)
[2019-10-07] MEDS: predniSONE 20 MG TABLET PO SCH (12:43)
[2019-10-08 05:59] LABS: Albumin 1.5 G/DL (3.4-5.0); Bilirubin,Total 0.8 MG/DL (0.2-1.0); Calcium 8.2 MG/DL (8.5-10.1); Total Protein 6.4 G/DL (6.4-8.3)
[2019-10-08 06:19] LABS: Basophils % 0.1 % (0.0-0.8); Hematocrit 24.7 VOL% (35.7-47.0); Hemoglobin 7.8 GM/DL (12.0-16.0); Immature Granulocytes % 0.7 %; Immature Granulocytes Absolute 0.06 #; Lymphocytes # 1.6 10*3/uL (1.4-4.0); Mean Corpuscular HGB Conc 31.6 GM/DL (32-36); Mean Corpuscular Volume 87.6 FL (87-102); Monocytes % 8.2 % (1.7-12.7); Platelet Count 351 T/CUMM (130-400); Red Blood Count 2.82 MC/CUMM (3.8-5.5); Red Cell Distribution Width 17.2 % (9.3-17.3); White Blood Count 9.2 T/CUMM (4-12)
[2019-10-08 06:29] LABS: Burr Cells Slight; Elliptocytes Few; Hypochromasia 1+; Platelet Estimate Adequate
[2019-10-08] MEDS: cefTRIAXone 1,000 MG in SYRINGE 1 EACH IV SCH (08:45)
[2019-10-08] MEDS: ACETAMINOPHEN 325 MG TABLET PO PRN (08:45)
[2019-10-08] MEDS: SODIUM BICARBONATE 650 MG TABLET PO SCH ×2 (08:45→22:14)
[2019-10-08] MEDS: allopurinoL 100 MG TABLET PO SCH (08:46)
[2019-10-08] MEDS: predniSONE 20 MG TABLET PO SCH (08:46)
[2019-10-08] MEDS: FERROUS SULFATE 325 MG TABLET PO SCH ×2 (08:46→22:13)
[2019-10-08] MEDS: PANTOPRAZOLE 40 MG TABLET PO SCH ×2 (08:46→22:13)
[2019-10-09 06:42] LABS: Basophils % 0.2 % (0.0-0.8); Eosinophils % 0.1 % (0.00-10.9); Hematocrit 23.9 VOL% (35.7-47.0); Hemoglobin 7.1 GM/DL (12.0-16.0); Immature Granulocytes % 0.8 %; Immature Granulocytes Absolute 0.07 #; Lymphocytes # 1.7 10*3/uL (1.4-4.0); Lymphocytes % 19.7 % (21.3-54.2); Mean Corpuscular HGB Conc 29.7 GM/DL (32-36); Mean Corpuscular Volume 90.9 FL (87-102); Mean Platelet Volume 10.3 FL (9.6-12.0); Monocytes % 5.3 % (1.7-12.7); Neutrophils % 73.9 % (38.7-73.9); Platelet Count 338 T/CUMM (130-400); Red Blood Count 2.63 MC/CUMM (3.8-5.5); Red Cell Distribution Width 17.5 % (9.3-17.3); White Blood Count 8.8 T/CUMM (4-12)
[2019-10-09 07:07] LABS: Alanine Aminotransferase 28 U/L (13-56); Albumin 1.6 G/DL (3.4-5.0); Alkaline Phosphatase 240 U/L (45-117); Aspartate Amino Transferase 19 U/L (0-37); Bilirubin,Total < 0.39 MG/DL (0.2-1.0); Blood Urea Nitrogen 67 MG/DL (7-18); Calcium 7.6 MG/DL (8.5-10.1); Estimated Glom Filtration Rate 9 ML/MIN; Glucose 90 MG/DL (74-106); Osmolality,Calculated 295.5 MOS/KG (273-304); Total Protein 6.6 G/DL (6.4-8.3)
[2019-10-09 07:57] VITALS: BP 115/69
[2019-10-09] MEDS: cefTRIAXone 1,000 MG in SYRINGE 1 EACH IV SCH (08:03)
[2019-10-09] MEDS: PANTOPRAZOLE 40 MG TABLET PO SCH (08:06)
[2019-10-09] MEDS: FERROUS SULFATE 325 MG TABLET PO SCH (08:06)
[2019-10-09] MEDS: SODIUM BICARBONATE 650 MG TABLET PO SCH (08:06)
[2019-10-09] MEDS: allopurinoL 100 MG TABLET PO SCH (08:06)
[2019-10-09] MEDS: predniSONE 20 MG TABLET PO SCH (08:06)
[2019-10-09] MEDS ORDERED: HEPARIN 10,000 UNIT/10 ML VIAL IV SCH (10:00)
[2019-10-09] MEDS: ACETAMINOPHEN 325 MG TABLET PO PRN (10:11)
[2019-10-09] MEDS ORDERED: TOBRAMYCIN INJ 80 MG in SODIUM CHLORIDE 0.9% 100 ML IV SCH (14:00)
== END 2019-10-09 17:39 | disposition home or self-care (01) | DRG 463 ==
LOC: EDUNIT# → EDBD → N.ED 07:15 → N.EDINP 11:22 → SUATTDRO 11:22 → N.EDINP 12:25 → N.5E 13:05
PROVIDERS: ADMIT Internal Medicine; ATTEND Internal Medicine